=== PATIENT | female | born 1955 | race Two or more races ===

== ENCOUNTER 2024-09-13 10:22 | Outpatient (CLI) | payer MEDICAID ==
--- NOTE | 2024-09-13 16:48 | RADIOLOGY REPORT ---
PROCEDURE: MR MRI LUMBAR SPINE INDICATION: LOW BACK PAIN W RADICULOPATHY Exam Date: 09/13/2024 11:41 AM COMPARISON: None TECHNIQUE: MRI lumbar spine without intravenous contrast. FINDINGS: The lumbar alignment is intact. There are degenerative endplate changes including modic endplate ch anges with anterior and lateral osteophytes throughout the lumbar spine. The visualized distal spinal cord and conus medullaris are within normal limits. The conus medullaris appears to terminate withi n normal limits. The visualized retroperitoneal and paraspinal soft tissues are unremarkable. Right kidney is not seen. The following axial levels are detailed below: T12-L1: Unremarkable. L1-L2: Unremarkable. L2-L3: There is a mild circumferential disc bulge. No significant central canal or neuroforaminal s tenosis. L3-L4: There is a mild circumferential disc bulge. No significant central canal or neuroforaminal s tenosis. L4-L5: There is a severe circumferential disc bulge complicated by facet arthropathy narrowing the central canal to 8 mm with associated moderate to severe bilateral neuroforaminal stenosis. L5-S1: There is a moderate circumferential disc bulge complicated by facet arthropathy associated wi th mild to moderate left neuroforaminal stenosis. No significant central canal stenosis. IMPRESSION: 1. 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 HS:Y
== END 2024-09-13 23:59 | disposition home or self-care (01) ==
LOC: MRI02 10:22
PROVIDERS: ATTEND Family Medicine
DX: M51.16 Intervertebral disc disorders with radiculopathy, lumbar region (principal); M47.26 Other spondylosis with radiculopathy, lumbar region; M48.061 Spinal stenosis, lumbar region without neurogenic claudication; M25.78 Osteophyte, vertebrae; M53.3 Sacrococcygeal disorders, not elsewhere classified
CPT/HCPCS: 72148; 73221

== ENCOUNTER 2024-09-13 10:24 | Outpatient (CLI) | payer MEDICAID ==
--- NOTE | 2024-09-14 04:11 | RADIOLOGY REPORT ---
CLINICAL INDICATION: L SHOULDER PAIN COMPARISON: None TECHNIQUE: Multiplanar, multisequence MRI of the left shoulder was performed without contrast. Contrast: None FINDINGS: Glenohumeral joint: There is no fracture or bone marrow edema. Alignment is maintained. Chondral t hinning in the posterior humeral head. Enthesopathic cysts in the posterior humeral head. There is s mall glenohumeral joint effusion. No synovitis. Acromioclavicular joint: The acromioclavicular joint is narrowed with capsular hypertrophy. Type 2 a cromion. Rotator cuff and bursae: There is supraspinatus tendinosis and partial-thickness articular surface te ar. There is infraspinatus tendinosis and partial-thickness articular surface tear. The subscapular is and teres minor tendons are intact. There is no regional muscle atrophy. There is fluid in th e subacromial subdeltoid bursa. Biceps tendon and glenoid labrum: The long head biceps tendon is located within the bicipital groove and intact. There is a tear of the anterior superior and posterior superior glenoid labrum. IMPRESSION: 1. Supraspinatus and infraspinatus tendinosis and partial-thickness articular surface tears of both t endons. No full-thickness rotator cuff tear. 2. AC joint arthrosis. 3. Subacromial subdeltoid bursitis. AC joint arthrosis. 4. Tear of the anterior superior and posterior superior labrum.
== END 2024-09-13 23:59 | disposition home or self-care (01) ==
LOC: MRI02 10:24 → EDUNIT# 11:30 → MRI02 23:59
PROVIDERS: ATTEND Physician Assistant Surgical
DX: S43.432A Superior glenoid labrum lesion of left shoulder, initial encounter (principal); M25.512 Pain in left shoulder; M19.012 Primary osteoarthritis, left shoulder; M25.412 Effusion, left shoulder; M75.52 Bursitis of left shoulder; X58.XXXA Exposure to other specified factors, initial encounter; Y93.89 Activity, other specified; M75.112 Incomplete rotator cuff tear or rupture of left shoulder, not specified as traumatic; Y92.89 Other specified places as the place of occurrence of the external cause; Y99.8 Other external cause status
CPT/HCPCS: 72148; 73221